=== PATIENT | male | born 1975 | race Two or more races ===

== ENCOUNTER 2023-12-24 17:42 | Emergency (ER) | payer SELFPAY ==
[~2023-12-24] VITALS: Ht 177.8 cm; Wt 100.0 kg
[2023-12-24 19:30] VITALS: PULSE 95; RESP 21; O2SAT 97
[2023-12-24] MEDS ORDERED: CEPHALEXIN 250 MG CAP PO ONE (20:30)
[2023-12-24] MEDS ORDERED: CEPH250C PO (20:31)
[2023-12-24] MEDS ORDERED: ACE3T PO (20:31)
[2023-12-24] MEDS ORDERED: ZOFR4T PO (20:31)
[2023-12-24] MEDS: HYDROmorphone HCL 2 MG/ML VL/or syr IM ONE (20:42)
[2023-12-24] MEDS: TETANUS-DIPTH-ACEL PERTUSSIS 0.5ML SYR Tdap IM ONE (20:50)
[2023-12-24 21:13] VITALS: BP 130/78; PULSE 85; RESP 21; O2SAT 95
== END 2023-12-24 21:26 | disposition home or self-care (01) ==
LOC: ER 17:42
DX: S06.0X0A Concussion without loss of consciousness, initial encounter (principal); S01.01XA Laceration without foreign body of scalp, initial encounter; E66.01 Morbid (severe) obesity due to excess calories; Z68.31 Body mass index [BMI] 31.0-31.9, adult; V98.8XXA Other specified transport accidents, initial encounter; Y93.55 Activity, bike riding; Y92.89 Other specified places as the place of occurrence of the external cause; Y99.8 Other external cause status
CPT/HCPCS: 12002; 70450; 72125; 90471; 90715; 96372; 99285; J1170